=== PATIENT | female | born 1980 | race American Indian/Alaskan Native ===

== ENCOUNTER 2018-04-18 15:53 | Emergency (ER) | payer SELFPAY ==
[2018-04-18 15:59] VITALS: BP 127/75
[2018-04-18] MEDS ORDERED: MOTRIN PO ONE ×2 (20:56→20:57)
== END 2018-04-18 21:01 | disposition left against medical advice (07) ==
LOC: ED 15:53
DX: N89.8 Other specified noninflammatory disorders of vagina (principal); Z53.21 Procedure and treatment not carried out due to patient leaving prior to being seen by health care provider